=== PATIENT | female | born 1960 | race Caucasian/White ===

== ENCOUNTER 2016-09-14 08:50 | Emergency (ER) | payer OTHER ==
[2016-09-14] MEDS ORDERED: ONDANSETRON 4 MG VIAL ONE (09:47)
[2016-09-14] MEDS ORDERED: ALU/MAG/SIM 30 ML UDC ONE (09:47)
[2016-09-14] MEDS ORDERED: LIDOCAINE 2% VISC 15 ML UDC ONE (09:47)
[2016-09-14] MEDS ORDERED: SODIUM CHLORIDE 0.9% 1,000 ML ONE (09:48)
[2016-09-14] MEDS ORDERED: METOCLOPRAMIDE 10 MG/2 ML VIAL ONE (10:31)
== END 2016-09-14 12:11 | disposition home or self-care (01) ==
LOC: ER 08:50
CPT/HCPCS: 36415; 74022; 80053; 83690; 85025; 96361; 96374; 96375